=== PATIENT | male | born 1970 | race Caucasian/White ===

== ENCOUNTER 2023-08-20 02:29 | Inpatient (IN) | payer MEDICAID, SELFPAY ==
--- NOTE | 2023-08-20 03:13 | EXP.HP ---
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 History obtained by patient and records reviewed it. Patient report symptoms started a week ago, but he associated to viral illness. Yesterday prior to admission, pain was significant worse, with abdominal distention, and vomit of complete undigested food. patient still passing gas. last BM 08/19. patient was transferred to our facility for surgical evaluation. [facility] Disclaimer: The information contained in this section may have been updated after the patient was seen, as this information can be updated by other users. Medical History (Updated 08/20/23 @ 03:39 by Grayson Mcdowell APRN) A-fib COPD (chronic obstructive pulmonary disease) History of cardioversion Myocardial infarct Pre-diabetes Surgical History (Updated 08/20/23 @ 03:05 by Urban Salas RN) H/O cardiac radiofrequency ablation H/O thumb surgery History of back surgery Stented coronary artery Family History (Updated 08/20/23 @ 03:07 by Urban Salas RN) Diabetes Father Brother Heart attack Grandfather COPD (chronic obstructive pulmonary disease) Grandfather Unknown Social History (Updated 08/20/23 @ 03:17 by Urban Salas RN) Smoking Status: Current every day smoker alcohol intake: current current occupational status: employed Travel in the last 8 weeks: None Review of Systems Review of Systems Review of systems:: pertinent systems reviewed and negative unless documented below Meds Home Medications and Allergies Home Medications Medication Instructions Recorded Confirmed Type amlodipine 5 mg tablet 5 mg PO DAILY High Blood Pressure 08/20/23 08/20/23 History atorvastatin 40 mg tablet 40 mg PO DAILY Cholesterol 08/20/23 08/20/23 History lisinopril 40 mg tablet 40 mg PO DAILY High Blood Pressure 08/20/23 08/20/23 History metoprolol succinate 25 mg 25 mg PO DAILY High Blood Pressure 08/20/23 08/20/23 History tablet,extended release 24 hr omeprazole 40 mg capsule,delayed 40 mg PO DAILY Acid Reflux 08/20/23 08/20/23 History release semaglutide 0.25 mg or 0.5 mg (2 0.25 mg SQ WEEKLY Diabetes/Weight 08/20/23 08/20/23 History mg/3 mL) subcutaneous pen injector Loss (Ozempic) testosterone cypionate 200 mg/mL 100 mg IM WEEKLY Low Testosterone 08/20/23 08/20/23 History intramuscular oil New Prescriptions to Start Prescriptions: Allergies Allergy/AdvReac Type Severity Reaction Status Date / Time Penicillins Allergy Verified 08/20/23 03:08 Exam *Routine HEENT Exam Head: Present normocephalic and atraumatic Eye: Present EOMI, PERRL and normal accommodation ENT: Present mucous membranes moist *Routine Neck Exam Neck: Present supple, full ROM and trachea midline *Routine Respiratory Exam Respiratory: Present normal respiratory effort, able to speak in complete sentences and symmetric chest movement *Routine Cardiovascular Exam Cardiovascular: Present RRR, Normal S1 and Normal S2 *Routine Abdominal Exam Abdominal: Present tenderness, distended, guarding and obese; Absent organomegaly Comments: RUQ diminished bowel sounds *Routine Rectal Exam Rectal:: deferred *Routine Genitalia Exam Genitalia:: deferred *Routine Extremities Exam Extremities: Present full ROM, pulses intact and normal capillary refill; Absent cyanosis, clubbing or edema *Routine Skin Exam Skin: Present intact, dry and warm *Routine Neurological Exam Neurological: Present alert, oriented X3, normal reflexes, moving all extremities and normal speech Routine Psychiatric Exam Psychiatric: Present normal thought process, cooperative and good judgment H&P
[2023-08-20 03:20] VITALS: BP 135/82; PULSE 86; RESP 16; TEMP 36.8; O2SAT 96; BMI 33.9
[2023-08-20 03:28] VITALS: BMI 34.0
--- NOTE | 2023-08-20 03:30 | XR_ITS ---
PROCEDURE INFORMATION: Exam: XR Abdomen Exam date and time: 08/20/2023 3:33 AM Age: 53 years old Clinical indication: Device placement; Gi device; Nasogastric tube; Additional info: Ng tube TECHNIQUE: Imaging protocol: Radiologic exam of the abdomen. Views: Frontal supine view of the abdomen. 1 View. COMPARISON: No relevant prior studies available. FINDINGS: Tubes, catheters and devices: Nasogastric tube overlies the stomach. Gastrointestinal tract: Normal. No bowel dilation. Bones/joints: Unremarkable. IMPRESSION: Nasogastric tube overlies the stomach.
[2023-08-20 03:37] LABS: Basophils % 0.5 % (0.1-2.0); Eosinophils # 0.2 K/mm3 (0.0-0.4); Eosinophils % 2.1 % (0.1-12.0); Hematocrit 41.1 % (42.0-52.0); Hemoglobin 14.2 g/dL (14.1-18.0); Lymphocytes # 1.6 K/mm3 (0.7-4.5); Lymphocytes % 17.2 % (10-50); Mean Corpuscular HGB Conc 34.5 g/dL (31.8-35.4); Mean Corpuscular Hemoglobin 31.3 pg (27.0-31.2); Mean Corpuscular Volume 90.7 fl (80-94); Mean Platelet Volume 8.5 fl (7.4-10.4); Monocytes # 0.5 K/mm3 (0.1-1.0); Monocytes % 5.1 % (1.7-9.3); Neutrophils # 6.8 K/mm3 (1.8-7.8); Platelet Count 342 K/mm3 (142-424); Red Blood Count 4.54 M/mm3 (4.60-6.20); Red Cell Distribution Width 13.7 % (11.5-17.5); White Blood Count 9.1 K/mm3 (4.8-10.8)
[2023-08-20 03:45] LABS: Prothrombin Time 10.8 seconds (10.1-12.5)
--- NOTE | 2023-08-20 03:45 | ECG_ITS ---
APPROVED REPORT Exam: Resting ECG HR:85 bpm ECG Measurements Heart Rate 85 AXES NC 193 P 52 QRSd 93 QRS 24 QT 372 T 45 QTc 414 Conclusion SINUS RHYTHM NORMAL ECG UNCONFIRMED REPORT Electronically signed by : Nigel Ibanez MD 08/20/2023 17:27:54
[2023-08-20 03:48] LABS: Chloride 103 mmol/L (98-107)
[2023-08-20 03:49] LABS: Sodium 137 mmol/L (136-145)
[2023-08-20 03:51] LABS: Alanine Aminotransferase 70 U/L (12-78); Aspartate Amino Transferase 50 U/L (17-59); Blood Urea Nitrogen 6 mg/dl (9-20); Creatinine Clearance Estimated 172 mL/min (50-200); Estimated Glomerular Filt Rate 101 ml/min (>60); GFR (African American) 122 ML/MIN (>60)
[2023-08-20 03:52] LABS: Albumin Level 4.3 g/dl (3.5-5.0); Albumin/Globulin Ratio 1.7 (1.1-1.8); Alkaline Phosphatase 110 U/L (38-126); Bilirubin,Total 0.4 mg/dl (0.2-1.3); Calcium 8.9 mg/dl (8.4-10.2); Carbon Dioxide 25 mmol/L (22.0-30.0); Globulin 2.5 g/dL (1.3-3.2); Glucose 115 mg/dl (74-100); Magnesium 1.6 mg/dl (1.6-2.3); Total Protein,Serum 6.8 g/dl (6.3-8.2)
[2023-08-20 03:55] LABS: Hemoglobin A1C 5.6 % (4.0-6.0)
--- NOTE | 2023-08-20 06:32 | PC.NURSE ---
patient is a&ox4. RA. 12 fr L nare NG tube placed at [facility] with unmeasurable marking but verified via KUB for placement. LWIS per hospitalist. RUQ bowel sounds hypoactive and diminished, abd discomfort. lung sounds clear. hx of half pack day smoking, refused nicotine patch. NSR on tele with hx of afib. Knee high scuds in place. last bm 08/19. at bedside since admission
--- NOTE | 2023-08-20 07:13 | EXP.SURG.CON ---
History of Present Illness *Admission Date: 08/20/23 *Reason for visit:: Bowel obstruction *History of present illness: Patient is a 53-year-old male from [facility] with reported history of hypertension, coronary artery disease with previous stenting, atrial fibrillation status post cardiac ablation, hyperlipidemia, COPD, smoker, prediabetes on Ozempic. He has had some intermittent abdominal pain and had some vomiting with some diarrhea last week. He actually had associated systemic symptoms including myalgias. Symptoms transiently improved. On 08/19/2023 pain got significantly worse characterized by bloating and cramping with some associated abdominal distention and vomiting of undigested food. He did move his bowels on 08/19/2023. Patient was evaluated at outside facility, [facility] emergency department. He underwent CT scan of the abdomen and pelvis with IV only contrast. By written report (I do not have access to the images at this time) there was small bowel dilatation up to 3.6 cm with distal ileum normal caliber and general zone of transition within the right abdomen with small amount of free fluid. Patient was admitted directly to the hospitalist service at this facility with a diagnosis of bowel obstruction for surgical evaluation. Patient has never had any abdominal surgery. He has never had a colonoscopy but did undergo a negative Cologuard by report 2 or 3 months ago. He had a liquid bowel movement since admission early this morning. [facility] Disclaimer: The information contained in this section may have been updated after the patient was seen, as this information can be updated by other users. Medical History (Updated 08/20/23 @ 03:39 by Grayson Mcdowell APRN) A-fib COPD (chronic obstructive pulmonary disease) History of cardioversion Myocardial infarct Pre-diabetes Surgical History (Updated 08/20/23 @ 03:05 by Urban Salas RN) H/O cardiac radiofrequency ablation H/O thumb surgery History of back surgery Stented coronary artery Family History (Updated 08/20/23 @ 03:07 by Urban Salas RN) Diabetes Father Brother Heart attack Grandfather COPD (chronic obstructive pulmonary disease) Grandfather Unknown Social History (Updated 08/20/23 @ 03:17 by Urban Salas RN) Smoking Status: Current every day smoker alcohol intake: current current occupational status: employed Travel in the last 8 weeks: None Meds Home Medications and Allergies Home Medications Medication Instructions Recorded Confirmed Type amlodipine 5 mg tablet 5 mg PO DAILY High Blood Pressure 08/20/23 08/20/23 History atorvastatin 40 mg tablet 40 mg PO DAILY Cholesterol 08/20/23 08/20/23 History lisinopril 40 mg tablet 40 mg PO DAILY High Blood Pressure 08/20/23 08/20/23 History metoprolol succinate 25 mg 25 mg PO DAILY High Blood Pressure 08/20/23 08/20/23 History tablet,extended release 24 hr omeprazole 40 mg capsule,delayed 40 mg PO DAILY Acid Reflux 08/20/23 08/20/23 History release semaglutide 0.25 mg or 0.5 mg (2 0.25 mg SQ WEEKLY Diabetes 08/20/23 08/20/23 History mg/3 mL) subcutaneous pen injector ([employer]) testosterone cypionate 200 mg/mL 100 mg IM WEEKLY Low Testosterone 08/20/23 08/20/23 History intramuscular oil New Prescriptions to Start Prescriptions: Allergies Allergy/AdvReac Type Severity Reaction Status Date / Time Penicillins Allergy Verified 08/20/23 03:08 Exam (Inpt) Vital signs and Labs for Last 24 Hours: Temp Pulse Resp BP Pulse Ox O2 Del Method 98.2 F 86 16 135/82 96 Room Air 08/20/23 03:20 08/20/23 03:20 08/20/23 03:20 08/20/23 03:20 08/20/23 03:20 08/20/23 05:00 Laboratory Results - last 24 hr 08/20/23 03:30: WBC 9.1, RBC 4.54 L, Hgb 14.2, Hct 41.1 L, MCV 90.7, MCH 31.3 H, MCHC 34.5, RDW 13.7, Plt Count 342, MPV 8.5, Neut % (Auto) 75.0, Lymph % (Auto) 17.2, [place] % (Auto) 5.1, Eos % (Auto) 2.1, Baso % (Auto) 0.5, [place]
--- NOTE | 2023-08-20 07:43 | HMH.PHAINT1 ---
Pharmacy Intervention Comments: MEDICATION RECONCILIATION COMPLETED ON PATIENT USING EXTERNAL FILL HISTORY FROM PHARMACY. -MADELYN DOE, HAYLEYD
[2023-08-20 08:00] VITALS: BP 157/98; PULSE 80; PULSE 86; RESP 18; TEMP 36.7; O2SAT 95
[2023-08-20 12:00] VITALS: PULSE 80
[2023-08-20 15:09] VITALS: BP 129/74; PULSE 71; RESP 17; TEMP 37.1; O2SAT 96
[2023-08-20 16:00] VITALS: PULSE 90
[2023-08-20 18:06] LABS: POC Glucose,Bedside 96 (70-110)
--- NOTE | 2023-08-20 18:48 | PC.NURSE ---
A&OX4. PT HAS TOLERATED RA WELL THROUGHOUT SHIFT. RESPIRATIONS REGULAR AND UNLABORED. LUNG SOUNDS BILATERALLY CLEAR. DISTENDED, FIRM, AND TENDER ABDOMEN. PT HAS HAD SEVERAL BMS THIS SHIFT. SAMPLE COLLECTED AND MD NOTIFIED IN CASE HE WOULD LIKE TO ORDER A DIARRHEA PANEL. NO EDEMA NOTED. +2 PULSES NOTED THROUGHOUT. HAS REMAINED AT BEDSIDE. VOIDS PER BATHROOM INDEPENDENTLY. NG TUBE IN PLACE. 450 OUTPUT NOTED THIS SHIFT. LIGHT BROWN IN COLOR. PT HAS TOLERATED CHIPS AND SIPS. PT STATES THE DAY HAS WENT ON HE HAS FELT WORSE. MD AWARE. PT REPORTED PAIN ONCE THIS SHIFT AND RECEIVED PAIN MEDS PER NOV. ON REASSESSMENT, PAIN WAS TOLERABLE. PT CURRENTLY RECEIVING LR. 250ML/HR FOR 2 HOURS. BED IN LOWEST POSITION. CALL LIGHT WITHIN REACH. VSS.
[2023-08-20 19:23] LABS: Campylobacter Not Detected (NotDetected); Clostridium Difficile A/B, PCR Not Detected (NotDetected); Cryptosporidium Not Detected (NotDetected); Cyclospora Cayetanesis Not Detected (NotDetected); Entamoeba histolytica Not Detected (NotDetected); Enteroaggregative E coli Not Detected (NotDetected); Enterotoxigenic E coli Not Detected (NotDetected); Giardia lamblia Not Detected (NotDetected); Plesimonas Shigalloides, PCR Not Detected (NotDetected); Salmonella, PCR Not Detected (NotDetected); Shiga-like toxin E coli Not Detected (NotDetected); Shigella Enterovasive E coli Not Detected (NotDetected); Vibrio Cholerae Not Detected (NotDetected); Vibrio, PCR Not Detected (NotDetected); Yersinia Entercolitica, PCR Not Detected (NotDetected)
[2023-08-20 19:24] LABS: Adenovirus F 40/41, stool Not Detected (NotDetected); Astrovirus Not Detected (NotDetected); Rotavirus A Not Detected (NotDetected); Sapovirus Not Detected (NotDetected)
[2023-08-20 20:00] VITALS: BP 130/75; PULSE 77; PULSE 90; RESP 16; TEMP 37.1; O2SAT 94
[2023-08-21] VITALS (7 sets, daily range): BP systolic 137–155; BP diastolic 79–83; PULSE 62–80; RESP 17–18; TEMP 36.6–36.7; O2SAT 94–99; BMI 33.2
[2023-08-21 06:09] LABS: Basophils % 0.5 % (0.1-2.0); Eosinophils # 0.3 K/mm3 (0.0-0.4); Eosinophils % 3.8 % (0.1-12.0); Hematocrit 40.6 % (42.0-52.0); Hemoglobin 14.2 g/dL (14.1-18.0); Lymphocytes # 2.5 K/mm3 (0.7-4.5); Lymphocytes % 28.7 % (10-50); Mean Corpuscular HGB Conc 34.9 g/dL (31.8-35.4); Mean Corpuscular Hemoglobin 32.1 pg (27.0-31.2); Mean Corpuscular Volume 91.8 fl (80-94); Mean Platelet Volume 8.3 fl (7.4-10.4); Monocytes # 0.6 K/mm3 (0.1-1.0); Monocytes % 6.5 % (1.7-9.3); Neutrophils # 5.2 K/mm3 (1.8-7.8); Neutrophils % 60.4 % (37.0-80.0); Platelet Count 310 K/mm3 (142-424); Red Blood Count 4.42 M/mm3 (4.60-6.20); Red Cell Distribution Width 13.5 % (11.5-17.5); White Blood Count 8.6 K/mm3 (4.8-10.8)
[2023-08-21 06:39] LABS: Alanine Aminotransferase 51 U/L (12-78); Alkaline Phosphatase 89 U/L (38-126); Aspartate Amino Transferase 39 U/L (17-59); Bilirubin,Total 0.5 mg/dl (0.2-1.3); Blood Urea Nitrogen 14 mg/dl (9-20); Calcium 8.9 mg/dl (8.4-10.2); Carbon Dioxide 27 mmol/L (22.0-30.0); Chloride 102 mmol/L (98-107); Creatinine Clearance Estimated 134 mL/min (50-200); Estimated Glomerular Filt Rate 78 ml/min (>60); GFR (African American) 95 ML/MIN (>60); Glucose 94 mg/dl (74-100); Magnesium 1.7 mg/dl (1.6-2.3)
[2023-08-21 06:40] LABS: Albumin Level 3.8 g/dl (3.5-5.0); Albumin/Globulin Ratio 1.4 (1.1-1.8); Anion Gap 10.6 mEq/L (5-15); Globulin 2.7 g/dL (1.3-3.2); Potassium 3.6 mmoL/L (3.5-5.1); Sodium 136 mmol/L (136-145); Total Protein,Serum 6.5 g/dl (6.3-8.2)
--- NOTE | 2023-08-21 07:58 | XR_ITS ---
FINAL REPORT CLINICAL HISTORY: ABDOMINAL PAIN FINDINGS: A PA view of the chest was obtained. The mediastinum is unremarkable. The lungs are clear. There is no free air beneath the diaphragm. Upright and supine views of the abdomen reveal a nonspecific, nonobstructive bowel gas pattern. No abnormal calcifications are identified. NG tube is seen in the stomach antrum. There is a moderate amount of retained stool throughout the colon. IMPRESSION: Moderate stool burden. Reviewed, Interpreted and Dictated by Buddy Bruno III, MD Transcribed by Debo Hamilton Authenticated and . [facility]
--- NOTE | 2023-08-21 07:59 | P.PN_ITS ---
Subjective Narrative: Patient states that he has had multiple loose stools yesterday. Denies any abdominal bloating or nausea. States that his mid abdomen is tender . Exam Data for Last 24 hours Vital signs and Labs for Last 24 Hours: Temp Pulse Resp BP Pulse Ox O2 Del Method 97.9 F 78 18 155/83 H 98 Room Air 08/21/23 07:36 08/21/23 07:36 08/21/23 07:36 08/21/23 07:36 08/21/23 07:36 08/21/23 07:36 Laboratory Results - last 24 hr 08/20/23 17:56: POC Glucose 96 08/21/23 05:44: WBC 8.6, RBC 4.42 L, Hgb 14.2, Hct 40.6 L, MCV 91.8, MCH 32.1 H, MCHC 34.9, RDW 13.5, Plt Count 310, MPV 8.3, Neut % (Auto) 60.4, Lymph % (Auto) 28.7, [place] % (Auto) 6.5, Eos % (Auto) 3.8, Baso % (Auto) 0.5, Neut # (Auto) 5.2, Lymph # (Auto) 2.5, [place] # (Auto) 0.6, Eos # (Auto) 0.3, Baso # (Auto) 0.0, Sodium 136, Potassium 3.6, Chloride 102, Carbon Dioxide 27, Anion Gap 10.6, BUN 14 D, Creatinine 1.00 D, Estimated Creat Clear 134, Estimated GFR 78, Est GFR ( Amer) 95 D, Glucose 94, Calcium 8.9, Magnesium 1.7, Total Bilirubin 0.5, AST 39, ALT 51 D, Alkaline Phosphatase 89, Total Protein 6.5, Albumin 3.8 D, Globulin 2.7, Albumin/Globulin Ratio 1.4 I & O for Last 24 hours: Intake & Output 08/18/23 08/19/23 08/20/23 08/21/23 11:59 11:59 11:59 11:59 Intake Total 0 / 0 0 / 0 Output Total 0 / 0 650 / 650 Balance 0 / 0 -650 / -650 Weight 251 lb 0.293 oz 245 lb 1.6 oz *Routine Abdominal Exam Abdominal: Present distended Progress Note: A&P Assessment and plan (1) Abdominal pain with vomiting: Status: Acute Assessment and plan: I will check an acute abdominal series. May be able to discontinue nasogastric tube. SenD in stool diarrhea panel. (2) Small bowel obstruction, partial: Status: Acute (3) Pre-diabetes: Status: Acute (4) A-fib: Status: Acute (5) History of cardioversion: Problem details: x3 Status: Acute (6) COPD (chronic obstructive pulmonary disease): Status: Acute (7) Current smoker: Status: Acute (8) Obesity (BMI 30.0-34.9): Status: Acute
--- NOTE | 2023-08-21 12:13 | EXP.ACUTE.PN ---
Subjective *Date: 08/21/23 *Time: 12:13 Interval history: Abdomen less distended this morning. Improvement in pain. No nausea or vomiting. Still having some scant output from NG however has been taking sips and chips which accounts for some of his output. Still having bowel movements and passing flatus. Plan for NG out this morning after discussion with surgery. Medical Exam Vital signs and Labs for Last 24 Hours: Vital Signs Temp Pulse Pulse Resp BP Pulse Ox O2 Del Method 08/21/23 11:00 Room Air 08/21/23 09:00 Room Air 08/21/23 08:00 Room Air 08/21/23 08:00 74 08/21/23 07:36 97.9 F 78 18 155/83 H 98 Room Air 08/20/23 20:00 Room Air 08/21/23 04:00 70 08/21/23 04:00 98.0 F 67 18 145/83 H 94 L Room Air 08/21/23 00:00 80 08/20/23 20:00 90 08/20/23 20:00 98.7 F 77 16 130/75 94 L Room Air 08/20/23 18:46 Room Air 08/20/23 17:00 Room Air 08/20/23 16:00 90 08/20/23 15:10 Room Air 08/20/23 15:09 98.7 F 71 17 129/74 96 Room Air 08/20/23 13:00 Room Air Intake and Output 08/20/23 08/21/23 08/21/23 23:59 07:59 15:59 Intake Total 0 / 0 Output Total 450 / 650 200 / 200 Balance -450 / -650 -200 / -200 Intake: Intake, Oral Amount 0 / 0 Output: Output, Urine Amount 0 / 200 200 / 200 Output, Gastric Drainage Amount 450 / 450 Left Nare 450 / 450 Other: Number of Voids 0 Number of Unmeasured Voids 2 1 Number of Bowel Movements 1 1 Weight 111.175 kg Patient Weight 08/21/23 23:59 Weight 111.175 kg Laboratory Results - last 24 hr 08/20/23 17:56: POC Glucose 96 08/21/23 05:44: WBC 8.6, RBC 4.42 L, Hgb 14.2, Hct 40.6 L, MCV 91.8, MCH 32.1 H, MCHC 34.9, RDW 13.5, Plt Count 310, MPV 8.3, Neut % (Auto) 60.4, Lymph % (Auto) 28.7, [place] % (Auto) 6.5, Eos % (Auto) 3.8, Baso % (Auto) 0.5, Neut # (Auto) 5.2, Lymph # (Auto) 2.5, [place] # (Auto) 0.6, Eos # (Auto) 0.3, Baso # (Auto) 0.0, Sodium 136, Potassium 3.6, Chloride 102, Carbon Dioxide 27, Anion Gap 10.6, BUN 14 D, Creatinine 1.00 D, Estimated Creat Clear 134, Estimated GFR 78, Est GFR ( Amer) 95 D, Glucose 94, Calcium 8.9, Magnesium 1.7, Total Bilirubin 0.5, AST 39, ALT 51 D, Alkaline Phosphatase 89, Total Protein 6.5, Albumin 3.8 D, Globulin 2.7, Albumin/Globulin Ratio 1.4 I & O for Labs for Last 24 Hours: Intake & Output 08/18/23 08/19/23 08/20/23 08/21/23 23:59 23:59 23:59 23:59 Intake Total 0 / 0 Output Total 450 / 650 200 / 200 Balance -450 / -650 -200 / -200 Weight 113.86 kg 111.175 kg Constitutional: Present no acute distress and obese Head: Present atraumatic ENT: Present normal exam Comment:: NG in left nare Neck: Present normal inspection Respiratory: Present normal respiratory effort; Absent rhonchi, wheezes or crackles Cardiac: Present Reg Rate and Rhythm GI: Present soft, tenderness (Minor, improved) and normal bowel sounds; Absent distention Extremities: Present normal inspection and full ROM Skin: Present intact; Absent erythema Neuro: Present Grossly Intact, alert, awake, oriented x 3 and moves all extremities Assessment and Plan *Assessment and plan (1) Small bowel obstruction, partial: Status: Acute Category: Medical Code(s): K56.600 - Partial intestinal obstruction, unspecified as to cause (2) Pre-diabetes: Status: Acute Category: Medical Code(s): R73.03 - Prediabetes (3) A-fib: Status: Acute Qualifiers: Atrial fibrillation type: unspecified Qualified Code(s): I48.91 - Unspecified atrial fibrillation Category: Medical Code(s): I48.91 - Unspecified atrial fibrillation (4) History of cardioversion: Problem Comment: x3 Status: Acute Category: Medical Code(s): Z92.89 - Personal history of other medical treatment (5) COPD (chronic obstructive pulmonary disease):
--- NOTE | 2023-08-21 17:53 | PC.NURSE ---
NG TUBE REMOVED THIS SHIFT. PT DENIES ABD PAIN N/V. HAS TOLERATED LIQUIDS WELL. RECEIVED PRN TYLENOL X2 FOR MACDONALD WITH GOOD EFFECTIVENESS NOTED.
[2023-08-22] VITALS: PULSE 80
[2023-08-22 04:00] VITALS: BP 112/56; PULSE 60; PULSE 78; RESP 18; TEMP 36.9; O2SAT 95; BMI 33.3
[2023-08-22 06:23] LABS: Basophils % 0.5 % (0.1-2.0); Eosinophils # 0.2 K/mm3 (0.0-0.4); Eosinophils % 3.6 % (0.1-12.0); Hematocrit 39.1 % (42.0-52.0); Hemoglobin 13.5 g/dL (14.1-18.0); Lymphocytes # 1.8 K/mm3 (0.7-4.5); Lymphocytes % 27.9 % (10-50); Mean Corpuscular HGB Conc 34.6 g/dL (31.8-35.4); Mean Corpuscular Hemoglobin 31.7 pg (27.0-31.2); Mean Corpuscular Volume 91.7 fl (80-94); Mean Platelet Volume 8.3 fl (7.4-10.4); Monocytes # 0.4 K/mm3 (0.1-1.0); Monocytes % 6.4 % (1.7-9.3); Neutrophils % 61.6 % (37.0-80.0); Platelet Count 303 K/mm3 (142-424); Red Blood Count 4.26 M/mm3 (4.60-6.20); Red Cell Distribution Width 13.3 % (11.5-17.5); White Blood Count 6.5 K/mm3 (4.8-10.8)
[2023-08-22 06:33] LABS: Alanine Aminotransferase 45 U/L (12-78); Albumin Level 3.8 g/dl (3.5-5.0); Albumin/Globulin Ratio 1.4 (1.1-1.8); Alkaline Phosphatase 110 U/L (38-126); Anion Gap 11.4 mEq/L (5-15); Aspartate Amino Transferase 37 U/L (17-59); Bilirubin,Total 0.6 mg/dl (0.2-1.3); Blood Urea Nitrogen 10 mg/dl (9-20); Calcium 8.5 mg/dl (8.4-10.2); Carbon Dioxide 26 mmol/L (22.0-30.0); Chloride 102 mmol/L (98-107); Creatinine Clearance Estimated 150 mL/min (50-200); Estimated Glomerular Filt Rate 88 ml/min (>60); GFR (African American) 107 ML/MIN (>60); Globulin 2.7 g/dL (1.3-3.2); Glucose 92 mg/dl (74-100); Potassium 3.4 mmoL/L (3.5-5.1); Sodium 136 mmol/L (136-145); Total Protein,Serum 6.5 g/dl (6.3-8.2)
[2023-08-22 07:39] LABS: Magnesium 1.8 mg/dl (1.6-2.3)
[2023-08-22 08:00] VITALS: BP 141/78; PULSE 76; PULSE 90; RESP 18; TEMP 36.6; O2SAT 94
--- NOTE | 2023-08-22 08:34 | EXP.DC.SUM ---
General Admission date:: 08/20/23 Discharge date: 08/22/23 HPI HPI HPI: Patient is a 53-year-old male from [facility] with reported history of hypertension, coronary artery disease with previous stenting, atrial fibrillation status post cardiac ablation, hyperlipidemia, COPD, smoker, prediabetes on Ozempic. He has had some intermittent abdominal pain and had some vomiting with some diarrhea last week. He actually had associated systemic symptoms including myalgias. Symptoms transiently improved. On 08/19/2023 pain got significantly worse characterized by bloating and cramping with some associated abdominal distention and vomiting of undigested food. He did move his bowels on 08/19/2023. Patient was evaluated at outside facility, [facility] emergency department. He underwent CT scan of the abdomen and pelvis with IV only contrast. By written report (I do not have access to the images at this time) there was small bowel dilatation up to 3.6 cm with distal ileum normal caliber and general zone of transition within the right abdomen with small amount of free fluid. Patient was admitted directly to the hospitalist service at this facility with a diagnosis of bowel obstruction for surgical evaluation. Patient has never had any abdominal surgery. He has never had a colonoscopy but did undergo a negative Cologuard by report 2 or 3 months ago. He had a liquid bowel movement since admission early this morning. 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 By records review, CT of abdomen with contract was obtained. imaging reviewed. There is a concern for SBO with distal right dilation. There is no signs of perforations, no free air, small amount of free liquid, and small hiatial hernia, no concern of torsion. Tolerated decompression with NG. Has been having bowel movements. Tolerating p.o. intake for 24 hours since removal of NG and continues to have bowel movements. No longer having abdominal pain. Meeting criteria for discharge home. Problems addressed as follows: -Abdominal pain and vomit secondary to partial SBO: -Suspected medication-induced ileus Surgery consulted, appreciate their recommendations. Serial imaging showed no moon obstruction. Suspect medication induced ileus. His pain and distention resolved, diet was advanced and patient tolerated it well with no further pain. Labs stable. Normal kidney function and electrolytes. Tolerating p.o. intake. Meeting criteria for discharge home recommend follow-up with surgery next week for reevaluation. -Prediabetes on ozempic: A1c 5.6. Within normal range. Concern Ozempic is an underlying culprit for his abdominal pain/delayed gastric emptying. Hold at this time. Recommend further discussion with his PCP Hx of afib s/p cardiovertion: No events during admission monitor telemetry continue metoprolol 25 mg daily Hypertension: Continue amlodipine 5 mg daily, Lipitor 40 mg daily, lisinopril 40 mg daily COPD: DuoNebs as needed. Stable on room air. Tobacco use disorder: Nicotine patch as needed Obesity: Complicates all aspects of his care Exam Data for Last 24 hours Vital signs and Labs for Last 24 Hours: Temp Pulse Resp BP Pulse Ox O2 Del Method 98.5 F 78 18 112/56 L 95 Room Air 08/22/23 04:00 08/22/23 04:00 08/22/23 04:00 08/22/23 04:00 08/22/23 04:00 08/22/23 05:00 Laboratory Results - last 24 hr 08/22/23 05:51: WBC 6.5, RBC 4.26 L, Hgb 13.5 L, Hct 39.1 L, MCV 91.7, MCH 31.7 H, MCHC 34.6, RDW 13.3, Plt Count 303, MPV 8.3, Neut % (Auto) 61.6, Lymph % (Auto) 27.9, [place] % (Auto) 6.4, Eos % (Auto) 3.6, Baso % (Auto) 0.5, Neut # (Auto) 4.0, Lymph # (Auto) 1.8, [place] # (Auto) 0.
--- NOTE | 2023-08-22 08:36 | EXP.SURG.PN ---
Subjective Patient reports: no new complaints and feels better Narrative: The patient states that he is no longer having diarrhea and feels almost normal . He is requesting discharge home. Exam Data for Last 24 hours Vital signs and Labs for Last 24 Hours: Temp Pulse Resp BP Pulse Ox O2 Del Method 98.5 F 78 18 112/56 L 95 Room Air 08/22/23 04:00 08/22/23 04:00 08/22/23 04:00 08/22/23 04:00 08/22/23 04:00 08/22/23 05:00 Laboratory Results - last 24 hr 08/22/23 05:51: WBC 6.5, RBC 4.26 L, Hgb 13.5 L, Hct 39.1 L, MCV 91.7, MCH 31.7 H, MCHC 34.6, RDW 13.3, Plt Count 303, MPV 8.3, Neut % (Auto) 61.6, Lymph % (Auto) 27.9, [place] % (Auto) 6.4, Eos % (Auto) 3.6, Baso % (Auto) 0.5, Neut # (Auto) 4.0, Lymph # (Auto) 1.8, [place] # (Auto) 0.4, Eos # (Auto) 0.2, Baso # (Auto) 0.0, Sodium 136, Potassium 3.4 L, Chloride 102, Carbon Dioxide 26, Anion Gap 11.4, BUN 10 D, Creatinine 0.90, Estimated Creat Clear 150, Estimated GFR 88, Est GFR ( Amer) 107, Glucose 92, Calcium 8.5, Magnesium 1.8, Total Bilirubin 0.6, AST 37, ALT 45, Alkaline Phosphatase 110, Total Protein 6.5, Albumin 3.8, Globulin 2.7, Albumin/Globulin Ratio 1.4 I & O for Last 24 hours: Intake & Output 08/19/23 08/20/23 08/21/23 08/22/23 11:59 11:59 11:59 11:59 Intake Total 0 / 0 0 / 0 1070 / 1070 Output Total 0 / 0 650 / 650 0 / 0 Balance 0 / 0 -650 / -650 1070 / 1070 Weight 251 lb 0.293 oz 245 lb 1.6 oz 246 lb 4.8 oz Constitutional Constitutional: no acute distress *Routine Respiratory Exam Respiratory: Absent respiratory distress *Routine Cardiovascular Exam Cardiovascular: Absent tachycardia *Routine Abdominal Exam Abdominal: Present soft and obese; Absent distended Progress Note: A&P Assessment and plan (1) Small bowel obstruction, partial: Status: Acute Assessment and plan: No evidence of complete obstruction. He continues to improve. Diarrhea essentially resolved (diarrhea panel pending). Okay from surgical standpoint for discharge home with outpatient follow-up.
[2023-08-24 11:36] LABS: Enteropathogenic E coli Detected (NotDetected); Norovirus Detected (NotDetected)
--- NOTE | 2023-08-24 14:18 | CARE MANAGER ---
Spoke with patient related to hospital discharge. He states he is doing well and denies questions or concerns. He did stop the Ozempic and is aware of his follow up appointments. RICKIE Mead
== END 2023-08-22 10:16 | disposition home or self-care (01) | DRG 390 ==
PROVIDERS: Internal Medicine Adolescent Medicine; Nurse Practitioner Family; Surgery; Admitting Provider Internal Medicine; PCP Family Medicine; Visit Provider Internal Medicine
DX: K56.600 Partial intestinal obstruction, unspecified as to cause (principal); I10 Essential (primary) hypertension; I25.10 Atherosclerotic heart disease of native coronary artery without angina pectoris; Z95.5 Presence of coronary angioplasty implant and graft; I48.91 Unspecified atrial fibrillation; J44.9 Chronic obstructive pulmonary disease, unspecified; F17.200 Nicotine dependence, unspecified, uncomplicated; R73.03 Prediabetes; Z71.6 Tobacco abuse counseling; T50.905A Adverse effect of unspecified drugs, medicaments and biological substances, initial encounter
CPT/HCPCS: 36415; 74018; 74021; 80053; 82962; 83036; 83735; 85025; 85610; 87507; 93005

== ENCOUNTER → 2023-08-31 07:44 | Outpatient (CLI) | payer MEDICAID, SELFPAY ==
--- NOTE | 2023-08-31 07:44 | FL_ITS ---
FINAL REPORT CLINICAL HISTORY: abd pain ft 2:54 dap 6507.63 FINDINGS: AIR CONTRAST UPPER GI AND SMALL BOWEL FOLLOW THROUGH HISTORY: Recent hospitalization with abnormal CT, ileus versus small bowel obstruction. TECHNIQUE: The patient ingested thick and thin barium contrast. Effervescent crystals were also administered. Additional barium was administered for a small bowel follow-through. Spot and overhead films were performed. A total of 75 images were saved. FINDINGS: Upper GI: The esophagus demonstrates no morphologic abnormalities. No mucosal defects are seen and motility appears normal. The stomach is of normal size, shape and position. No gastric filling defects are seen. The duodenal bulb and sweep appear unremarkable. No episodes of gastroesophageal reflux observed. 13 mm barium tablet passes easily through the esophagus and into the stomach. SBFT: The machine oiler film is unremarkable. The transit time to the colon is normal. Contrast reaches the colon at 90 minutes. There is no evidence of bowel obstruction. No abnormally dilated bowel is identified. The mucosal fold pattern is normal. Spot images of the terminal ileum are unremarkable. FLUROSCOPY TIME: 2 minutes 54 seconds Radiation exposure in Total DAP: 6507.63 [id number] IMPRESSION: Unremarkable upper GI and small bowel follow through. Reviewed, Interpreted and Dictated by Gold Gonzales MD Transcribed by Susana Barry PA-C Authenticated and [facility]
== END ==
PROVIDERS: PCP Family Medicine; Visit Provider Surgery
DX: R10.9 Unspecified abdominal pain (principal)
CPT/HCPCS: 74246; 74248